=== PATIENT | female | born 1985 | race Caucasian/White ===

== ENCOUNTER 2016-07-05 07:24 | Emergency (ER) | payer OTHER, SELFPAY ==
[~2016-07-05 07:24] MED LIST: ANAPROX DS550 M1 PO; BACTRIM DS TABL1 TAB PO; BACTROBAN22 GM TP; COLACE100 M1 PO; ELIMITE60 GM TP; HYDROCODON-ACE1 EA17 PO; IBUPROFEN800 M1 PO; IRON325 M1 PO; KEFLEX500 M2 PO; MOTRIN800 MG PO; NO HOME MEDS; NORCO 5-325 TA1 EACH PO; PERCOCET 5/3251 TAB PO; STOOL SOFTENER100 M2 PO; TRAMADOL HCL50 M2 PO
== END 2016-07-05 08:23 ==
LOC: EDMED 07:24
DX: M79.672 Pain in left foot (principal); Z98.890 Other specified postprocedural states

== ENCOUNTER 2016-08-08 19:19 | Emergency (ER) | payer SELFPAY ==
[2016-08-08 20:14] LABS: URINE APPEARANCE HAZY; URINE BILIRUBIN NEGATIVE (NEG); URINE BLOOD NEGATIVE (NEG); URINE COLOR YELLOW; URINE GLUCOSE (UA) NEGATIVE (NEG); URINE KETONE NEGATIVE (NEG); URINE LEUKOCYTE ESTERASE NEGATIVE (NEG); URINE NITRITE NEGATIVE (NEG); URINE PROTEIN NEGATIVE (NEG); URINE SPECIFIC GRAVITY 1.015 (1.003-1.030)
[2016-08-08 20:46] LABS: BASO % 0.1 % (0-2); EOS % 0.9 % (0-7); EOSINOPHIL ABSOLUTE COUNT 0.1 tho/cmm (0.0-0.7); HCT-HEMATOCRIT 35.4 % (34.0-49.0); HGB-HEMOGLOBIN 11.6 gm/dl (12.0-15.5); IMMATURE GRANULOCYTES ABSOLUTE 0.02 tho/cmm (0-0.03); IMMATURE GRANULOCYTES PERCENT 0.2 % (0-0.3); LYMPH % 36.8 % (20-45); LYMPH ABSOLUTE COUNT 3.3 tho/cmm (0.8-4.5); MCH (MEAN CORPUSCULAR HGB) 28.2 pg (28.0-32.0); MCHC MEAN CORPUSCULAR HGB CONC 32.8 % (32.0-36.0); MCV (MEAN CELL VOLUME) 86.1 fl (82.0-96.0); MEAN PLATELET VOLUME 10.8 cmc (9.4-12.4); MONO % 7.1 % (0-12); MONOCYTE ABSOLUTE COUNT 0.6 tho/cmm (0.0-1.2); NEUTROPHILS % 54.9 % (40-80); PLATELET COUNT 326 tho/cmm (150-450); RED BLOOD COUNT 4.11 mil/cmm (4.00-5.20)
[2016-08-08 20:56] LABS: ANION GAP 13 mmol/L (0-20); BLOOD UREA NITROGEN 14 mg/dl (6-24); CALCIUM 8.8 mg/dl (8.5-10.5); CARBON DIOXIDE-VENOUS 24 mmol/L (22-32); CHLORIDE 110 mmol/l (96-110); GLUCOSE 95 mg/dL (70-110); POTASSIUM 3.7 mmol/L (3.7-5.1); SODIUM 143 mmol/L (135-145); eGFR VALUE FOR BLACK >90 mL/Min
[2016-08-08] MEDS ORDERED: ULTRAM50 M1 PO (21:47)
== END 2016-08-08 22:03 ==
LOC: EDMED 19:19
PROVIDERS: Emergency Medicine
DX: R10.2 Pelvic and perineal pain (principal); Z90.89 Acquired absence of other organs; Z98.890 Other specified postprocedural states
CPT/HCPCS: J2270; J2405; J7030